=== PATIENT | female | born 1975 | race Caucasian/White ===

== ENCOUNTER 2017-12-26 03:12 | Inpatient (IN) | payer OTHER ==
[~2017-12-26] VITALS: Ht 165.1 cm; Wt 82.6 kg
[~2017-12-26 03:12] MED LIST: FINASTERIDE5 M1 PO
--- NOTE | 2017-12-26 08:59 | RADIOLOGY REPORT ---
EXAMINATION: XR LUMBAR SPINE CLINICAL INFORMATION: L4-L5 and L5-S1 fusion COMPARISON: None TECHNIQUE: Single lateral intraoperative radiograph of lumbar spine (labeled image 1). FINDINGS/IMPRESSION: The lumbar vertebra have well preserved height and alignment. Surgical changes from placement of zero profile fusion cages at L4-L5 and L5-S1. On this single lateral view, the anterior and posterior elements appear intact. A needle projects posterior to the L4 spinous process.
--- NOTE | 2017-12-26 10:42 | Operative Report ---
Operative/Inv Procedure Report Surgery Date: 12/26/17 Name of Procedure: L4-5 expiration of fusion L4-5 posterior lateral nonsegmental posterior instrumentation using Liberty Mooney pedicle screws L4-5 posterior lateral fusion using V toss and infuse use of Stealth navigation Right iliac crest bone marrow aspirate Pre-Operative Diagnosis: L4-5 pseudoarthrosis Post-Operative Diagnosis: Same Estimated Blood Loss: 50ml to 100ml Surgeon/Pattern Grader: Silver Zamora MD, Mariana RODRIGUEZ,Sonia Jesus Anesthesia: general endotracheal tube Operative/Procedure Note Note: After the successful administration of general endotracheal anesthesia all lines to the monitor was anesthesia team. The patient was prone on the Eligio table all pressure points padded. Patient was prepped and a spinal needle was placed at the L4-5 level ex was used to confirm level. Spinal needle was removed and 10 cc of lidocaine with epinephrine was infiltrated in subcu tissues. #10 was used to incise the skin. This was deepened but was recorded to the third lumbar fascia. Thoracolumbar fascia was divided and a subperiosteal dissection was carried out exposed the spinous process and lamina of L4 and L5 care was taken not to denude to 3 4 joint space. We then over the transverse process of L4 and L5. These t transverse processes were decorticated with high-speed drill. 4 5 joint was also denuded. We then placed a progress pain in the right iliac crest after was pre-cannulated with a Jamshidi needle and bone marrow aspirate was removed. The [employer] system was brought in and the O arm was spun. On the [employer] workstation we planned our screw trajectories and entry points. We then used a high-speed drill to drill harbor pilot holes at the junction of transverse process process declares facet complex at L4 and L5 these were deepened with the navigator Lenke probe and tapped with a 5.5 mm tap. All holes are good circumferential bone. We placed 6.5 x 45 screws at L4 of and 6.5 x 40 mm screws at L5. All screws stimulated above threshold. The O arm was brought in for confirmatory spin all hardware was in excellent position. We then placed 2 precontoured 40 mm rods screw placed with the set screws and tightened them down with a torque limiting hydraulic lift driver. The transverse processes were packed with infuse and Vitoss soaked with bone marrow aspirate. The wound was copiously irrigated bacitracin irrigation hemostasis obtained Vanco myosin powder was infiltrated into the tissues. Through separate stab incision to drain was left in place the wounds were closed in layers using 0 Vicryl for the muscle and fascia 2-0 Vicryl deep dermis and skin was closed with ynes the patient has been removed and the incision closed. Dry sterile dressings were applied. At the end the case all needle counts, sponges, and instruments were correct. The patient taken to the PACU in stable condition.
--- NOTE | 2017-12-26 10:45 | Operative Report ---
Operative/Inv Procedure Report Surgery Date: 12/26/17 Name of Procedure: 1. Exploration of L4 5 arthrodesis 2. Nonsegmental L4 5 posterior lateral arthrodesis with Dubois pedicle screws and rods, V toss, BMP, ICBM aspirate 3. O arm neuro navigation 4. Right iliac crest bone marrow aspirate Pre-Operative Diagnosis: L4 5 pseudoarthrosis Post-Operative Diagnosis: Same Estimated Blood Loss: 50ml to 100ml Surgeon/Key Worker: Mariana RODRIGUEZ,Silver Burton M.D. Anesthesia: general endotracheal tube Monitors: Neurophysiologic monitoring IV Fluids: rePlaced with crystalloid Implants: Dubois Mooney pedicle screws and rods Urine Output: Via Mcintosh Drains: Medium Hemovac Specimens: None Complications: None Condition: Stable Operative Indication: Patient is a 42-year-old woman status post a previous L4 5, L5 S1 1 left with solid interbody arthrodesis at L5-S1 but pseudoarthrosis radiologically at L4 5 with chronic intractable low back pain. She is felt Copper has a course of conservative treatment and now presents for exploration and supplemental posterior fixation/arthrodesis at L4 5. Operative/Procedure Note Note: Patient was brought to the operating room. After appropriate patient identification and surgical timeout, the patient underwent the smooth induction of general endotracheal anesthesia without incident. Neurophysiologic monitoring leads were placed and baseline recordings were obtained. A Mcintosh catheter was sterilely inserted. All tubes and lines secured, patient was carefully turned to the prone position on the Eligio frame taking care to ensure that all pressure points well-padded. She is given 2 g of IV Preoperative Prophylaxis. DVT Prophylaxis Utilized to the Case. Lumbar region was widely prepped and draped usual sterile fashion using povidone iodine solution. A small gauge spinal needle was placed superficially and a localizing lateral x-ray was obtained to confirm the needle to be at the L4 5 level. Skin was infiltrated with 10 mL of local anesthetic. Incision was made with a 10 blade knife. Dissection was carried down through subcutaneous tissue with the Bovie to the lumbar dorsal fascia. The fascia was incised in midline and a subperiosteal dissection lumbar paravertebral muscles was performed bilaterally exposing the spinous processes lamina and the facet joints of L4 5 bilaterally. He could appreciate the sacral ala bilaterally. We exposed the transverse processes of L4 and L5 bilaterally and they were decorticated with a high-speed drill. We then made a stab incision over the right iliac crest. Using a Jamshidi needle, 10 mL of right iliac crest bone marrow aspirate was obtained and passed off to the back table. We then placed the O arm reference arc into the right iliac crest. The O arm was brought into play. AP and lateral reference x-rays followed by a spin was obtained. Reconstructions were completed and reviewed. We then proceeded with the posterior lateral arthrodesis with placement of instrumentation. Using O arm navigation, entry points for pedicle screws were selected at L4 and L5 at the junction of the pars interarticularis transverse process and inferomedial aspect of the facet. Points were marked with the drill. The pedicles were traversed with a gearshift, sounded with ball-tipped probe, tapped , resounded, and screws placed with navigation. 5 mL of the V toss was then added to 10 mL of Iveth crest bone marrow aspirate. A small infuse was divided and placed of the intertransverse space from L4 to L5 bilaterally followed by the V toss/ICBM aspirate overlying the BMP. Screws were then placed. At L4, 6.5 x 45 mm screws were placed bilaterally, at L5, 6.5 x 40 mm screws were placed bilaterally. Once all screws were in position they were stimulated with thresholds greater than 17 mA at all 4 locations. A second spin of the O arm was obtained and confirmed good position of all instrumentation. 40 mm titanium rods were then top loaded and locking caps placed. Screws were finally tightened with an antitorque device. We then began wound closure. Neurophysiologic monitoring was stable. Was copiously irrigated with bacitracin sterile saline irrigation. 1 Gram of of vancomycin powder was placed into the wound. A medium Hemovac drain was placed into the wound and secured to the skin with a 2-0 nylon suture. Deep muscle was reapproximated with 0 Vicryl suture. The fascia was reapproximated with 0 Vicryl suture. 10 mL of long-acting experal was placed into the paravertebral muscle for postoperative analgesia and the remainder the wound was closed in layers with interrupted 2-0 Vicryl suture and ynes in the skin. The wound was cleaned and dried. Bacitracin and sterile consent dressing was placed. A single 2-0 Vicryl was placed at the right hip incision and the skin closed with ynes. It was cleaned and dried and a sterile Band-Aid applied The patient was returned to the supine position, awakened, exudate, taken to PACU in stable condition. She was noted to be moving all 4 extremities at the completion of the case. All sponge, needle, and injuring counts are correct at the completion of the procedure 3. Neurophysiologic monitoring was stable throughout the case. Findings: L4/5 pseudoarthrosis Discharge Disposition: PACU
--- NOTE | 2017-12-26 11:07 | Admission Core Measures ---
Acute Coronary Syndrome (CM) ACS Core Measures Acute Coronary Syndrome Diagnosis No Congestive Heart Failure (NEW) CHF Core Measures Congestive Heart Failure Diagnosis No Cerebrovascular Accident CVA Core Measures CVA/TIA Diagnosis No Venous Thromboembolism VTE Core Sixto (View Protocol) VTE Risk Factors Surgery No Mechanical VTE Prophylaxis d/t N/A MechProphylax Ordered No VTE Pharm Prophylaxis d/t NA PharmProphylax ordered Problem List As ranked by this Provider includes Assessment & Plan 1. Lumbar pseudoarthrosis HOME MEDS Home Med List Finasteride 5 MG TABLET 1 TAB PO DAILY HAIR LOSS (Reported)
--- NOTE | 2017-12-26 11:13 | Patient Discharge Instructions ---
Discharge Instructions General Discharge Information You were seen/treated for: Lumbar pseudoarthrosis levels 4-5 You had these procedures: Nonsegmental L4 5 posterior lateral arthrodesis with iliac crest bone graft Watch for these problems: Worsening pain despite the use of pain medications Redness, warmth or swelling around incision Drainage of any type from incision Fever greater than 101.5 Worsening weakness, numbness or tingling to bialteral legs Inability to urinate or move bowels Call Surgeon to remove: [place] Do not soak the wound: Yes No bath, but you may shower: Yes Other wound care: Please keep wound clean and dry. If wound gets wet while in shower, please pat dry with clean towel after. Do not scrub incision. No ointments of any type on or near incision, no exceptions unless otherwise indicated by Dr. Peña Do not soak wound in bath, pool, hot tub or any other body of water for a miniumum of 6 weeks. Avoid excess perspiration, especially while wearing back support in order to keep wound clean and dry while it is healing. Diet Continue normal diet: Yes Recommended Diet: Regular Activity Full Activity/No Limits: No Activity Self Limited: Yes Pounds, do NOT lift more than: 5 Additional ACTIVITY Info: Do not lift anything heavier than a phone book during the initial part of your recovery. Wear back brace when out of bed. Mobility/walking is encouraged in order to help avoid tightening of back muscles. As stated in wound care instructions, please avoid excessive perspiration when walking around while wound is healing Acute Coronary Syndrome Inclusion Criteria At DC or during hospital stay patient has or had the following: ACS DIAGNOSIS No Discharge Core Measures Meds if any: Prescribed or Continued at Discharge Meds if any: NOT Prescribed or Continued at Discharge Congestive Heart Failure Inclusion Criteria At DC or during hospital stay patient has or had the following: CHF DIAGNOSIS No Discharge Core Measures Meds if any: Prescribed or Continued at Discharge Meds if any: NOT Prescribed or Continued at Discharge Cerebrovascular accident Inclusion Criteria At DC or during hospital stay patient has or had the following: CVA/TIA Diagnosis No Discharge Core Measures Meds if any: Prescribed or Continued at Discharge Meds if any: NOT Prescribed or Continued at Discharge Venous thromboembolism Inclusion Criteria VTE Diagnosis No VTE Type NONE VTE Confirmed by (Test) NONE Discharge Core Measures - Per Current guidelines, there needs to be overlap - treatment for the first 5 days of Warfarin therapy. - If discharged on Warfarin prior to 5 days of - overlap therapy, the patient will need to be - assessed for post discharge needs including - *Post discharge parental anticoagulation - *Warfarin and/or parental anticoagulation education - *Follow up date to check INR post discharge At least 5 days overlap therapy as Inpatient No Meds if any: Prescribed or Continued at Discharge Note: Overlap Therapy is Warfarin and Anticoagulant Meds if any: NOT Prescribed or Continued at Discharge
--- NOTE | 2017-12-26 11:17 | Surgical Discharge Summary ---
Visit Information Visit Dates Admission Date: 12/26/17 Discharge Date: 12/27/2017 History of Present Illness Chief Complaint: Back pain related to L4 5 pseudoarthrosis Surgical History Pertinent Surgical History: non-contributory Review of Systems: See H&P Hospital Course Course Attending Physician: Mariana RODRIGUEZ,Sonia Jesus Primary Care Physician: Brian Wilcox MD Hospital Course: Sharron presented today for an elective/scheduled revision of a fusion L4-5. She tolerated the procedure well and was transferred to a general surgical floor. There her diet was advanced and tolerated. She voided spontaneously. She was evaluated and treated by physical therapy. Throughout hospital course and at the time of hospital discharge, her vital signs were stable and within normal limits, her neurovascular status was intact and her pain was appropriately managed with oral pain medications. She was deemed appropriate for hospital discharge. Allergies: Coded Allergies: No Known Allergies (12/25/17) Disposition Summary Disposition Principal Diagnosis: L4-5 pseudoarthrosis Additional Diagnosis: None Discharge Disposition: home or self care Discharge Instructions General Discharge Information Code Status: Full Code Patient's Diet: Regular, advance as tolerated Patient's Activity: WBAT, OOB with brace Follow-Up Instructions/Appts: Follow up with Dr. Peña in 1-2 weeks from date of surgery. Please call office to arrange/confirm appointment. Medications at Discharge Discharge Medications: Continue taking these medications: Finasteride (Finasteride) 5 MG TABLET 1 Tablet ORAL DAILY
--- NOTE | 2017-12-26 13:56 | PN- Student ---
Marika Romo 12/26/17 1348: Subjective Subjective: Pt states she feels ok post-operatively. She is continuing to experience pain despite COMMISSARY REPRESENTATIVE use. She ambulated to the bathroom and stated it was painful to walk. Voided without difficulty. Complaining of itching which she says she experiences when she takes dilaudid. Denies any nausea, vomiting, CP, SOB, difficulty breathing, MALDONADO or dizziness. Objective Objective: Vitals: See EMR General:Middle aged woman, sitting up in bed, appears comfortable, NAD. Cardio: Regular rate and rhythm. s1 and S2. No murmurs, rubs or gallops. pulm: clear breath sounds with no wheezes, rhonchi or rales. abdomen: Normoactive bowel sounds. Soft, non-tender, non-distended. Extremities: ALPs in place. Calves soft and non-tender bilaterally. Gross motor and sensation intact and equal bilaterally. 4/5 dorsi and planta flextion bilaterally. Results Results: Laboratory Tests 12/26/17 0629: Urine Test NEGATIVE Assessment/Plan Assessment: 42 year old F POD#0 s/p elective revision of L4-5 fusion. Pt's pain is being controlled. Hemovac with moderate amount of drainage. Vital signs stable. Plan: Continue with pain control prn Zofran prn nausea Physical therapy to see pt Hep SQ starting tomorrow for DVT ppx Next dose of Cefazolin due at 4. Hem[address], continue to monitor output. Benadryl for itching. Encourage ambulation and incentive spirometry use. ALPs in place. Regular diet as tolerated. Continue home medications. Gogo Green 12/26/17 8667: Addendum Note Addendum Patient seen and examined. Agree with PA-S note above. Patient stable post operatively. On exam lumbar dressing with mild sanguinous drainage noted. Drain output of 70 cc since surgery. Neurovascularly intact. Already ambulated to the bathroom and back. Voided. Plan: - Diet as tolerated - Pain control - will change to PO Percocet and Tylenol with IV Morphine for breakthrough - PT to see and evaluate - Continue IV abx while drain in place - Monitor HV drain output - Continue home medications - DVT ppx - alps, HSQ to start tomorrow - Will keep overnight for observation and pain control - Possible d/c tomorrow - Pt d/w Dr. Peña
[2017-12-26 14:00] VITALS: BP 138/86
[2017-12-26 17:00] VITALS: BP 130/90
[2017-12-26 19:27] VITALS: BP 140/98
[2017-12-26 22:12] VITALS: BP 120/76
[2017-12-27 01:46] VITALS: BP 132/78
[2017-12-27 06:32] VITALS: BP 130/72
--- NOTE | 2017-12-27 07:31 | PN- Neurosurgical ---
Subjective Subjective: Pt doing well. Reports incisional LBP, no leg sx's. Objective Vital Signs and I&Os Vital Signs Date Time Temp Pulse Resp B/P B/P Pulse O2 O2 Flow FiO2 Mean Ox Delivery Rate 12/27 0632 97.7 70 18 130/72 97 12/27 0146 98.5 78 18 132/78 99 12/26 2212 98.3 81 18 120/76 100 Room Air 12/26 1927 98.0 88 19 140/98 100 Room Air 12/26 1700 98.2 87 19 130/90 97 Room Air 12/26 1600 Room Air 12/26 1400 97.7 98 18 138/86 12/26 1400 97.7 78 18 138/86 98 Room Air Intake & Output 12/27 0800 12/27 0000 12/26 1600 12/26 0800 12/26 0000 12/25 1600 Intake Total 640 490 300 Output Total 900 1290 750 Balance -260 -800 -450 Intake, IV 400 250 50 Intake, Oral 240 240 250 Output, 0 40 Drainage Output, Urine 900 1250 750 Patient 82.554 kg 82.554 kg Weight Physical Exam: AF, VSS awake and alert neuro exam intact bilat LE to motor/sensory no LE edema incision wit min serosanguinous dc HV with 40/0cc last 2 shifts OOB to BR voiding on own raheel min po last night per pt reports abd soft Current Medications: Current Medications Sig/Shruthi Start time Last Medication Dose Route Stop Time Status Admin Acetaminophen 1,000 MG Q8H 12/26 1300 DC 12/27 IV 12/27 0501 0425 Calcium Carbonate 500 MG ONCE ONE 12/26 2215 CAN PO 12/26 221 Cefazolin Sodium 2 GM IQ8 12/26 1600 AC 12/27 N/A 1 UNIT IV 12/28 0600 0033 Cefazolin Sodium 2,000 MG ONCE 12/26 0000 DC IV 12/26 2359 Diazepam 5 MG TIDPRN 12/26 1300 AC PO Diphenhydramine HCl 0 .STK-MED ONE 12/26 2240 DC PO Diphenhydramine HCl 50 MG AT BEDTIME NEED.. 12/26 2230 AC 12/26 PO 2242 Docusate Sodium 100 MG TID 12/26 1400 AC 12/26 PO 2043 Gelatin 0 .STK-MED ONE 12/26 0746 DC TOP Heparin Sodium 5,000 UNIT Q8 12/27 0600 AC 12/27 (Porcine) SC 0425 Hydromorphone HCl 0 .STK-MED ONE 12/26 1143 DC .ROUTE Hydromorphone HCl 0 .STK-MED ONE 12/26 1122 DC .ROUTE Hydromorphone HCl 50 MG Q24H PRN 12/26 1115 DC Sodium Chloride 45 ML IV Hydromorphone HCl 0 .STK-MED ONE 12/26 1107 DC .ROUTE Hydromorphone HCl 0 .STK-MED ONE 12/26 1051 DC .ROUTE Hydromorphone HCl 0 .STK-MED ONE 12/26 1023 DC .ROUTE Influenza Virus 0.5 ML ONCE ONE 12/26 1630 DC 12/26 Vaccine IM 12/26 1631 1715 Ketorolac 15 MG Q8P PRN 12/26 1300 AC 12/27 Tromethamine IV 0435 Ketorolac 0 .STK-MED ONE 12/26 1051 DC Tromethamine .ROUTE Morphine Sulfate 2 MG Q6P PRN 12/26 1445 AC 12/27 IV 0038 Ondansetron HCl 4 MG Q6P PRN 12/26 1300 AC 12/26 IV 1727 Oxycodone HCl 5 MG Q4-PRN PRN 12/26 1445 CAN PO Oxycodone HCl 10 MG Q4 HRS NEEDED PRN 12/26 1445 CAN PO Oxycodone/ 2 TAB Q4P PRN 12/26 1500 AC 12/26 Acetaminophen PO 1728 Oxycodone/ 1 TAB Q4P PRN 12/26 1445 AC Acetaminophen PO Senna/Docusate Sodium 2 TAB DAILY 12/27 0900 AC PO Sodium Chloride 1,000 ML .Q20H 12/26 1300 AC 12/27 IV 0435 Trimethobenzamide HCl 200 MG TIDPRN 12/26 1300 AC IM Results Last 48 Hours of Labs: Laboratory Tests 12/26 0629 Urines Urine Test NEGATIVE Assessment/Plan Assessment/Plan Pt POD1 s/p L4/5 revision fusion and doing well. Neurologically intact. Incisional LBP controlled with meds. Plan: -dc HV, abx -oob, reg diet -dc home later this am if doing well -fu 2 wks for wound check -dc instructions discussed in detail with pt Core Measures Venous Thromboembolism VTE Risk Factors Surgery No Mechanical VTE Prophylaxis d/t N/A MechProphylax Ordered No VTE Pharm Prophylaxis d/t NA PharmProphylax ordered Attending MD Review Statement Attending Statement Attending MD Statement: examined this patient, discuss w/resident/PA/INTERNAL CARVER
[2017-12-27] MEDS ORDERED: PERCOCET 5-3251 EACH PO (08:01)
[2017-12-27] MEDS ORDERED: VALIUM5 M2 PO (08:01)
[2017-12-27 14:28] VITALS: BP 128/70
== END 2017-12-27 21:16 | DRG 455 ==
LOC: DELPENDDIS → SDA 03:12 → 2NB 03:12 → ENRESERV 11:04 → ENTRNSPT 12:04 → EDTRNSPT 12:32 → EDTRNSPTSTS 12:32 → 2NB 12:41 → CMPTRNSPT 12:51 → ENPENDDIS 12-27 08:27 → 2NB 12-27 21:16
PROC: 4A11X4G Monitoring of Peripheral Nervous Electrical Activity, Intraoperative, External Approach (ICD-10-PCS; principal; 2017-12-26)
PROC: 0QW004Z Revision of Internal Fixation Device in Lumbar Vertebra, Open Approach (ICD-10-PCS; principal; 2017-12-26)
PROC: 0SG0071 Fusion of Lumbar Vertebral Joint with Autologous Tissue Substitute, Posterior Approach, Posterior Column, Open Approach (ICD-10-PCS; principal; 2017-12-26)
PROC: 0SG00AJ Fusion of Lumbar Vertebral Joint with Interbody Fusion Device, Posterior Approach, Anterior Column, Open Approach (ICD-10-PCS; principal; 2017-12-26)
PROC: 8E0WXBZ Computer Assisted Procedure of Trunk Region (ICD-10-PCS; principal; 2017-12-26)
PROC: 07DR3ZX Extraction of Iliac Bone Marrow, Percutaneous Approach, Diagnostic (ICD-10-PCS; principal; 2017-12-26)
DX: M96.0 Pseudarthrosis after fusion or arthrodesis (principal); M48.00 Spinal stenosis, site unspecified; F12.90 Cannabis use, unspecified, uncomplicated; Z98.1 Arthrodesis status
CPT/HCPCS: 2NBSP; 36415; 72020; 76000; 81025; J0131; J0690; J1170; J1644; J1885; J2405; J3250; J3370; J3490; Q2036